=== PATIENT | male | born 1960 | race Caucasian/White ===

== ENCOUNTER 2023-01-26 20:30 | Emergency (ER) | payer BC ==
--- NOTE | 2023-01-26 20:42 | ED Physician Documentation ---
History of Present Illness - Stated complaint Stated Complaint: L FINGER INJ - Chief complaint Chief Complaint: Ext Problem - Additonal information Additional information: 62-year-old male presents emergency department for evaluation of acute left middle finger injury sustained when playing soccer. Soccer ball jammed his finger and he ended up with a deformity at the PIP joint. He is right-handed. Review of Systems Musculoskeletal: reports: Joint pain PD PAST MEDICAL HISTORY - Allergies Allergies/Adverse Reactions: Allergies Allergy/AdvReac Type Severity Reaction Status Date / Time No Known Drug Allergies Allergy Verified 01/26/23 20:36 PD ED PE EXPANDED - Extremities Extremities: Right finger(s) (Deformity at the PIP joint that was easily reduced with simple traction. Following reduction patient is able to flex and extend all joints of the finger though remains painful. NVI) Results - Vitals Vitals: Vital Signs - 24 hr 01/26/23 20:34 Temperature 36.3 C L Heart Rate 67 Respiratory 16 Rate Blood Pressure 124/83 H O2 Saturation 100 Oxygen O2 Source Room air - Rads (name of study) left finger xr Relevant Findings:: EMP independent interpretation of test (No acute fracture or dislocation) PD Medical Decision Making - ED course Complexity details: reviewed results, considered differential, d/w patient ED course: 62-year-old male here for evaluation of the left middle finger injury sustained when his finger was jammed by a soccer ball. On presentation to the ER he had obvious dislocation at the PIP joint. I was able to quickly and easily reduce this at the bedside using simple traction. Following this his pain improved and is able to flex and extend though still somewhat painful against resistance. X- ray images were obtained and per my interpretation no acute findings of fracture are noted. I suspect at this time contusion and sprain injury. Patient was placed in a finger splint advised Motrin and Tylenol [id number] for discomfort. Usual emergent return precautions were discussed for worsening symptoms Departure - Departure Disposition: 01 Home, Self Care Clinical Impression: Dislocation, finger, interphalangeal joint Qualifiers: Encounter type: initial encounter Qualified Code(s): S63.279A - Dislocation of unspecified interphalangeal joint of unspecified finger, initial encounter Condition: Stable Record reviewed to determine appropriate education?: Yes Instructions: ED Dislocation Finger Redu Comments: As discussed at the bedside you sustained a dislocation of your left middle finger that was easily reduced at the bedside. My interpretation of the x-rays is that there is no acute fracture. You will have some pain and swelling in this area for the next several days. I do recommend you take Tylenol or ibuprofen [id number] for discomfort. Icing the finger may also feel comfortable. I am going to give you a finger splint to wear for comfort. Return to the ER if you are having any worsening symptoms. I will notify you if the radiologist interprets your x-rays differently
[2023-01-26 21:58] VITALS: BP 122/80
--- NOTE | 2023-01-26 23:04 | XRAY Report ---
PROCEDURE: Finger(s) LT INDICATIONS: dislocation reducation at 3rd finger PIP TECHNIQUE: AP hand, 2 views of the third digit acquired. COMPARISON: None. FINDINGS: Bones: No fractures or dislocations. No suspicious bony lesions. Soft tissues: No suspicious soft tissue calcifications or masses. IMPRESSION: 1. No definite fracture identified. Reviewed by: Lobo Soler MD on 01/26/2023 11:03 PM PDT Approved by: Lobo Soler MD on 01/26/2023 11:03 PM PDT Station ID: [id number]
== END 2023-01-26 21:57 | disposition home or self-care (01) ==
LOC: ED 20:30
DX: S63.279A Dislocation of unspecified interphalangeal joint of unspecified finger, initial encounter (principal); X58.XXXA Exposure to other specified factors, initial encounter; Y93.66 Activity, soccer
CPT/HCPCS: 99283